=== PATIENT | female | born 2000 | race Caucasian/White ===

== ENCOUNTER 2023-06-28 20:18 | Emergency (ER) | payer OTHER, MEDICAID ==
[2023-06-28 20:29] VITALS: BP 130/80; O2SAT 100
== END 2023-06-28 21:54 | disposition left against medical advice (07) ==
LOC: ED 20:18
DX: Z53.21 Procedure and treatment not carried out due to patient leaving prior to being seen by health care provider (principal)
CPT/HCPCS: 93005

== ENCOUNTER 2023-12-12 21:31 | Outpatient (CLI) | payer OTHER, MEDICAID ==
--- NOTE | 2023-12-13 15:36 | Ultrasound Report ---
PROCEDURE: Pelvic Complete INDICATIONS: POLYCYSTIC OVARIAN SYN TECHNIQUE: Real-time transabdominal scanning was performed of the pelvic organs, with image documentation. COMPARISON: None FINDINGS: Uterus: Uterus is anteverted and normal in size at 7.4 x 4.9 x 5.4 cm. The myometrium is homogeneou s. The endometrium measures 8.1 mm in combined thickness. Ovaries: The right ovary measures 4.0 x 2.8 x 3.1 cm, with a calculated ovarian volume of 17.9 cc. The left ovary measures 2.5 x 2.0 x 3.1 cm, with a calculated ovarian volume of 8.0 cc. Focus of decr eased echogenicity is present within the right ovary measuring 2.3 x 1.8 x 2.1 cm. Greater than 12 fo llicles are present bilaterally . Other: No free pelvic fluid. IMPRESSION: Mildly complex right ovarian cyst, possibly hemorrhagic. Great and 12 follicles are present bilaterally as can be seen with polycystic ovarian syndrome. Reviewed by: Berta Isaac MD on 12/13/2023 3:34 PM PDT Approved by: Berta Isaac MD on 12/13/2023 3:34 PM PDT Station ID: [id number]
== END 2023-12-12 21:32 | disposition home or self-care (01) ==
LOC: DI 21:31
PROVIDERS: ATTEND Nurse Practitioner
DX: E28.2 Polycystic ovarian syndrome (principal)